=== PATIENT | male | born 1990 | race Caucasian/White ===

== ENCOUNTER 2016-12-28 11:14 | Emergency (ER) | payer OTHER ==
[2016-12-28 11:27] VITALS: BMI 20.2
[2016-12-28 11:31] VITALS: RESP 16; TEMP 97.3
[2016-12-28] MEDS ORDERED: TDAP Vaccine 0.5 mL Syr IM ONE (11:39)
--- NOTE | 2016-12-28 11:41 | ED PDOC ---
Arrival/HPI - General Chief Complaint: Medical Clearance Time Seen by Provider: 12/28/16 11:34 Historian: Patient - History of Present Illness Narrative History of Present Illness (Text): 12/28/16 11:38 This 26-year-old male who denies past medical history presenting to the ER requesting a tetanus shot. Patient stated he accidentally cut his left index finger with a kitchen knife at work in a cruise yesterday. Patient was able to see his doctor who performed laceration repair on his finger laceration. Patient was referred to come to the ER to get a tetanus shot. He denies other complaints. Tetanus shot was more than 5 years. Patient is right-hand dominant. Time/Duration: Other (See HPI) Context: Work Past Medical History - Provider Review Nursing Documentation Reviewed: Yes - Cardiac Hx Cardiac Disorders: No - Pulmonary Hx Respiratory Disorders: No - Neurological Hx Neurological Disorder: No - HEENT Hx HEENT Disorder: No - Renal Hx Renal Disorder: No - Endocrine/Metabolic Hx Endocrine Disorders: No - Hematological/Oncological Hx Blood Disorders: No - Integumentary Hx Dermatological Disorder: No - Musculoskeletal/Rheumatological Hx Musculoskeletal Disorders: No - Gastrointestinal Hx Gastrointestinal Disorders: No - Genitourinary/Gynecological Hx Genitourinary Disorders: No - Psychiatric Hx Psychophysiologic Disorder: No Hx Substance Use: No - Anesthesia Hx Anesthesia: No Family/Social History - Physician Review Nursing Documentation Reviewed: Yes Family/Social History: Other (Noncontributory) Smoking Status: Never Smoked Hx Alcohol Use: No Hx Substance Use: No Allergies/Home Meds Allergies/Adverse Reactions: Allergies No Known Allergies Allergy (Verified 12/28/16 11:27) Review of Systems - Review of Systems Constitutional: Normal. absent: Fatigue, Weight Change, Fevers, Night Sweats Eyes: Normal. absent: Vision Changes ENT: Normal Respiratory: Normal. absent: SOB, Cough Cardiovascular: Normal. absent: Chest Pain Gastrointestinal: Normal. absent: Abdominal Pain, Nausea, Vomiting Genitourinary Male: Normal. absent: Dysuria, Frequency Musculoskeletal: Normal Skin: Laceration (See HPI). absent: Rash Neurological: Normal Endocrine: Normal Hemo/Lymphatic: Normal Psychiatric: Normal Physical Exam Vital Signs Temp Pulse Resp BP Pulse Ox 12/28/16 11:27 97.3 F L 71 16 124/77 97 12/28/16 11:25 99.3 F 71 17 124/77 97 Temperature: Afebrile Blood Pressure: Normal Pulse: Regular Respiratory Rate: Normal Appearance: Positive for: Well-Appearing, Non-Toxic, Comfortable Pain Distress: None Mental Status: Positive for: Alert and Oriented X 3 - Systems Exam Head: Present: Atraumatic, Normocephalic Pupils: Present: PERRL Extroacular Muscles: Present: EOMI Conjunctiva: Present: Normal Mouth: Present: Moist Mucous Membranes Neck: Present: Normal Range of Motion Upper Extremity: Present: Normal ROM, NORMAL PULSES, Neurovascularly Intact, Capillary Refill < 2s, Other (Left index finger has a dressing. No surrounding erythema.). No: Cyanosis, Edema Lower Extremity: Present: Normal Inspection, Normal ROM, Capillary Refill < 2 s Neurological: Present: GCS=15, CN II-XII Intact, Speech Normal, Motor Func Grossly Intact, Normal Sensory Function, Normal Cerebellar Funct, Gait Normal Skin: Present: Warm, Dry, Normal Color. No: Rashes Psychiatric: Present: Alert, Oriented x 3, Normal Insight Medical Decision Making ED Course and Treatment: 12/28/16 11:51 Wound dressing was removed from left index finger. Skin avulsion of the distal digit of the second left hand was visualized with 2 sutures. Wound was still oozing blood. 12/28/16 12:46 Wound dressing and Gelfoam was applied on the one. It was controlled. He shouldn 't was recommended to keep the wound clean and dry for 2 days and have him be rechecked in 2 days. Re-evaluation Time: 12:47 Reassessment Condition: Re-examined, Improved - Medication Orders Current Medication Orders: Discontinued Medications Gelatin (Gelfoam Size 12-7) 1 spg MM STAT STA Stop: 12/28/16 12:02 Tetanus/Reduced Diphtheria/Acell Pertussis (Boostrix Vaccine Inj) 0.5 ml IM .ONCE ONE Stop: 12/28/16 11:40 Last Admin: 12/28/16 11:52 Dose: 0.5 ml [facility] Immunization Data Document 12/28/16 11:52 EQ (Rec: 12/28/16 11:52 EQ [id number]) Immunization Data Vaccine Lot Number [id number] Vaccine Expiration Date 11/23/18 Site Given Left Deltoid - Procedure PROCEDURE NOTE (Text): 12/28/16 12:47 Under sterile technique, wound was cleaned, wound dressing with a Gelfoam applied by me. Bleeding was controlled. Patient tolerated procedure well. Minimal blood loss. Tetanus shot was ordered. Disposition/Present on Arrival - Present on Arrival Any Indicators Present on Arrival: No History of DVT/PE: No History of Uncontrolled Diabetes: No Urinary Catheter: No History of Decub. Ulcer: No History Surgical Site Infection Following: None - Disposition Have Diagnosis and Disposition been Completed?: Yes Diagnosis: Avulsion of skin of finger Disposition: HOME/ ROUTINE Disposition Time: 12:48 Patient Plan: Discharge Patient Problems: Current Active Problems Problem Status Onset Avulsion of skin of finger Acute Condition: GOOD Discharge Instructions (ExitCare): Skin Avulsion (ED) Additional Instructions: Call private doctor for follow-up and wound check in 2 days. Keep wound clean and dry for 2 days. Return to the emergency if there is any signs of infection such as drainage, swelling, redness of the whole finger, or worsening pain Prescriptions: Cephalexin [cephalexin] 500 mg PO QID #20 cap Referrals: PCP,NO [Primary Care Provider] - Follow up with primary [facility] [Outside] - Follow up with primary [facility] [Outside] - Follow up with primary Forms: [employer] (Danish)
[2016-12-28] MEDS ORDERED: Absorbable Gelatin Sponge Size 12-7 MM STA (12:01)
[2016-12-28 13:10] VITALS: BP 121/74; PULSE 69; O2SAT 99
== END 2016-12-28 13:09 | disposition home or self-care (01) ==
LOC: ED 11:14
DX: S61.211A Laceration without foreign body of left index finger without damage to nail, initial encounter (principal); W26.0XXA Contact with knife, initial encounter; Y99.0 Civilian activity done for income or pay; Z23 Encounter for immunization